=== PATIENT | male | born 1990 | race Asian ===

== ENCOUNTER 2018-09-29 07:55 | Emergency (ER) | payer OTHER ==
[2018-09-29 08:14] VITALS: BP 117/81
--- NOTE | 2018-09-29 08:23 | UC ---
Skin Complaint HPI - History of Current Complaint Chief Complaint: UCDentalProblem Time Seen by Provider: 09/29/18 08:22 Stated Complaint: JAW INFECTION Pain Intensity: 3 - Allergy/Home Medications Allergies/Adverse Reactions: Allergies Allergy/AdvReac Type Severity Reaction Status Date / Time No Known Allergies Allergy Verified 09/29/18 08:14 Home Medications: Home Medications Levofloxacin TAB* [Levaquin TAB*] 750 mg PO DAILY 09/29/18 [History Confirmed ] Mupirocin 2% OINT* [Bactroban 2 % Oint*] 1 applic TOPICAL BID 09/29/18 [History Confirmed 09/29/18] PMH/Surg Hx/FS Hx/Imm Hx - Surgical History Surgical History: None - Social History Alcohol Use: None Substance Use Type: None Smoking Status (MU): Never Smoked Tobacco Physical Exam Vital Signs: Initial Vital Signs Temp 97.6 F 09/29/18 08:08 Pulse 68 09/29/18 08:08 Resp 18 09/29/18 08:08 BP 117/81 09/29/18 08:08 Pulse Ox 100 09/29/18 08:08 Discharge - Discharge Plan Referrals: No Primary Care Phys,NOPCP [Primary Care Provider] -
--- NOTE | 2018-09-29 08:46 | UC ---
Skin Complaint HPI - HPI Summary HPI Summary: 27 yo male presents with rash to his face. He tells me that about 1 week ago he had a small welt on his left lower cheek that he scratched. The next day had some redness and drainage from the site. He went to [facility] and was put on an antibiotic - unsure the name. After 2 days, he rash continued to spread to his chin and right cheek. He went back to [facility] and was placed on a cream and a different antibiotic - unsure the name. His rash continued to spread and started to appear on his forehead and right neck. He went back to [facility] yesterday and was put on Levaquin. He contacted them this morning because he is having trouble opening his mouth due to pain and swelling - he was advised to go to the hospital for IV antibiotics. He states he is here for IV antibiotics. Denies fever, chills, hx of MRSA. - History of Current Complaint Chief Complaint: UCDentalProblem Time Seen by Provider: 09/29/18 08:22 Stated Complaint: JAW INFECTION Hx Obtained From: Patient Onset/Duration: Gradual Onset Onset Severity: Mild Current Severity: Mild Pain Intensity: 3 Pain Scale Used: 0-10 Numeric - Allergy/Home Medications Allergies/Adverse Reactions: Allergies Allergy/AdvReac Type Severity Reaction Status Date / Time No Known Allergies Allergy Verified 09/29/18 08:14 Home Medications: Home Medications Levofloxacin TAB* [Levaquin TAB*] 750 mg PO DAILY 09/29/18 [History Confirmed ] Mupirocin 2% OINT* [Bactroban 2 % Oint*] 1 applic TOPICAL BID 09/29/18 [History Confirmed 09/29/18] PMH/Surg Hx/FS Hx/Imm Hx - Additional Past Medical History Additional PMH: None - Surgical History Surgical History: None - Family History Known Family History: Positive: None - Social History Occupation: Employed Full-time Lives: With Family Alcohol Use: None Substance Use Type: None Smoking Status (MU): Never Smoked Tobacco Review of Systems All Other Systems Reviewed And Are Negative: Yes Constitutional: Positive: Negative Skin: Positive: Rash Eyes: Positive: Negative ENT: Positive: Negative Respiratory: Positive: Negative Cardiovascular: Positive: Negative Gastrointestinal: Positive: Negative Neurovascular: Positive: Negative Neurological: Positive: Negative Psychological: Positive: Negative Physical Exam - Summary Physical Exam Summary: GENERAL: NAD. WDWN. No pain distress. SKIN: FACE: Chin, right lower cheek, and forehead with mild edema and extensive yellow crusted erythema and drainage. TTP. Right neck with expanding erythema. No abscess appreciated. No sloughing of lips or oral mucosa. No periorbital rash or edema. NECK: Supple. Nontender. No lymphadenopathy. CHEST: No accessory muscle use. Breathing comfortably and in no distress. CV: Pulses intact. Cap refill <2seconds NEURO: Alert. PSYCH: Age appropriate behavior. Triage Information Reviewed: Yes Vital Signs: Initial Vital Signs Temp 97.6 F 09/29/18 08:08 Pulse 68 09/29/18 08:08 Resp 18 09/29/18 08:08 BP 117/81 09/29/18 08:08 Pulse Ox 100 09/29/18 08:08 Vital Signs Reviewed: Yes Course/Dx - Course Course Of Treatment: Appears to be a moderate to severe case of impetigo. Given his refractory treatment to 3 different po anbx outpatient and bactroban cream - he was advised to go to the ED for IV antibiotics, by [facility]. He is here today because he thought this was the ER. I discussed with him the location of the ER and agree with [facility] that he likely needs IV antibiotics or a derm consult. He was provided with directions to the hospital - Diagnoses Provider Diagnosis: Impetigo Discharge - Sign-Out/Discharge Documenting (check all that apply): Patient Departure All imaging exams completed and their final reports reviewed: No Studies - Discharge Plan Condition: Stable Disposition: HOME-RECOMMEND TO ED Referrals: No Primary Care Phys,NOPCP [Primary Care Provider] - Additional Instructions: Please go to the ER for further evaluation of your facial rash - Billing Disposition and Condition Condition: STABLE Disposition: Home-Recommend to ED
== END 2018-09-29 08:50 | disposition home health service (06) ==
LOC: UCEAST 07:55
DX: L01.00 Impetigo, unspecified (principal)
CPT/HCPCS: 99202; G0463

== ENCOUNTER 2018-09-29 09:17 | Emergency (ER) | payer OTHER ==
--- NOTE | 2018-09-29 10:13 | ED ---
Skin Complaint - HPI Summary HPI Summary: The patient is a 27 y/o M presenting to [facility] with a chief complaint of facial skin rash starting one week ago. The rash is located on his forehead and cheeks and is accompanied by erythema and swelling, primarily in the right side of the face. He has visited [facility] three times over the course of the week, and he has been prescribed three different abx, with the current prescription being for Levaquin and Bactroban to no relief. He has not experienced this before. He denies fever and chills. The pain is currently rated 3/10 in severity. He has not seen a stock feeder yet. No hx. No surgical hx. No FHx. Nonsmoker, no EtOH, no substance use. - History of Current Complaint Chief Complaint: EDRashSkinAbscess Time Seen by Provider: 09/29/18 10:05 Stated Complaint: FACIAL RASH PER PT-SENT FROM URGENT CARE Hx Obtained From: Patient Onset/Duration: Started Days Ago - one week, Still Present Skin Exposure Onset/Duration: Days Ago Timing: Constant, Lasting Days Onset Severity: Mild Current Severity: Moderate Pain Intensity: 3 Pain Scale Used: 0-10 Numeric Skin Location: Face - forehead, left and right cheeks Character: Swelling, Redness Aggravating Symptom(s): Nothing Alleviating Symptom(s): Nothing - abx prescribed by [facility] have not changed the rash Associated Signs & Symptoms: Rash - facial - Allergy/Home Medications Allergies/Adverse Reactions: Allergies Allergy/AdvReac Type Severity Reaction Status Date / Time No Known Allergies Allergy Verified 09/29/18 09:24 PMH/Surg Hx/FS Hx/Imm Hx Endocrine/Hematology History: Denies: Hx Diabetes Respiratory History: Denies: Hx Asthma Sensory History: Reports: Hx Contacts or Glasses Denies: Hx Legally Blind Opthamlomology History: Reports: Hx Contacts or Glasses Denies: Hx Legally Blind EENT History: Denies: Hx Deafness - Surgical History Surgical History: None Surgery Procedure, Year, and Place: none Infectious Disease History: No Infectious Disease History: Denies: Traveled Outside the [place] in Last 30 Days - Family History Known Family History: Negative: Cardiac Disease, Hypertension, Diabetes - Social History Alcohol Use: None Hx Substance Use: No Substance Use Type: Reports: None Hx Tobacco Use: No Smoking Status (MU): Never Smoked Tobacco Do You Chew or Dip Tobacco: No Have You Chewed or Dipped Tobacco in the LAST YEAR: No Have You Smoked in the Last Year: No Review of Systems Negative: Fever, Chills Positive: Rash - on the forehead and cheeks, Other - swelling at site of rash mostly on the right side with erythema All Other Systems Reviewed And Are Negative: Yes Physical Exam - Summary Physical Exam Summary: VITAL SIGNS: Reviewed. GENERAL: Patient is a well-developed and nourished male who is lying comfortable in the stretcher. Patient is not in any acute respiratory distress. HEAD AND FACE: No signs of trauma. No ecchymosis, hematomas or skull depressions. No sinus tenderness. EYES: PERRLA, EOMI x 2, No injected conjunctiva, no nystagmus. EARS: Hearing grossly intact. Ear canals and tympanic membranes are within normal limits. MOUTH: Oropharynx within normal limits. NECK: Supple, trachea is midline, no adenopathy, no JVD, no carotid bruit, no c- spine tenderness, neck with full ROM. CHEST: Symmetric, no tenderness at palpation LUNGS: Clear to auscultation bilaterally. No wheezing or crackles. CVS: Regular rate and rhythm, S1 and S2 present, no murmurs or gallops appreciated. ABDOMEN: Soft, non-tender. No signs of distention. No rebound no guarding, and no masses palpated. Bowel sounds are normal. EXTREMITIES: FROM in all major joints, no edema, no cyanosis or clubbing. NEURO: Alert and oriented x 3. No acute neurological deficits. Speech is normal and follows commands. SKIN: Dry and warm. Erythema in the lower jaw under the lower lip extending into the right and left cheeks as well as the forehead with vesicular lesions and papules and a few pustules with crusty discharge. Triage Information Reviewed: Yes Vital Signs On Initial Exam: Initial Vitals Temp Pulse Resp BP Pulse Ox 97.0 F 73 16 124/83 97 09/29/18 09:20 09/29/18 09:20 09/29/18 09:20 09/29/18 09:20 09/29/18 09:20 Vital Signs Reviewed: Yes Diagnostics - Vital Signs Vital Signs Temp Pulse Resp BP Pulse Ox 09/29/18 09:20 97.0 F 73 16 124/83 97 - Laboratory Result Diagrams: 09/29/18 10:21 09/29/18 10:21 Lab Statement: Any lab studies that have been ordered have been reviewed, and results considered in the medical decision making process. Re-Evaluation - Re-Evaluation First Eval Re-Evaluation Time: 12:00 Comment: I discussed discharge home with the patient and the need for follow up with dermatology. Course/Dx - Course Assessment/Plan: The patient is a 27 y/o M presenting to [facility] with a chief complaint of facial skin rash starting one week ago. The rash is located on his forehead and cheeks and is accompanied by erythema and swelling, primarily in the right side of the face. He has visited [facility] three times over the course of the week, and he has been prescribed three different abx, with the current prescription being for Levaquin and Bactroban to no relief. He has not experienced this before. He denies fever and chills. The pain is currently rated 3/10 in severity. He has not seen a stock feeder yet. No hx. No surgical hx. No FHx. Nonsmoker, no EtOH, no substance use. Blood tests without any significant abnormality. I believe that the patient has a form of impetigo with possible secondary skin infection. At this point, I dont believe Levaquin will help the patient especially if this is MRSA. Therefore, I would change the antibiotic for this patient to Bactrim twice a day and continue with Mupirocin. I will also send the patient to see a stock feeder on Monday, October 01 at [facility]. He was given instructions that if he develops any fever, weakness, decreased appetite, or lethargy, he should immediately return to the emergency department for further workup and management. He understands and agrees. - Diagnoses Provider Diagnoses: Impetigo - Physician Notifications Discussed Care Of Patient With: [facility] Time Discussed With Above Provider: 11:30 Instructed by Provider To: Other - [facility] was called to try to speak with a stock feeder concerning the patient. However, a provider was not available, and they said that the physician will call the patient to make an appointment. Discharge - Sign-Out/Discharge Documenting (check all that apply): Patient Departure - Patient will be discharged home. Patient Received Moderate/Deep Sedation with Procedure: No - Discharge Plan Condition: Stable Disposition: HOME Prescriptions: Sulfamethox/Trimethoprim DS* [Bactrim DS 800/160 TAB*] 1 tab PO BID #20 tab Patient Education Materials: Impetigo (DC) Referrals: Presley Rizvi MD [Medical Doctor] - 2 Days Additional Instructions: Please take medication as prescribed. Follow up with [facility] on Monday, October 01, 2018. RETURN TO THE EMERGENCY DEPARTMENT FOR ANY NEW OR WORSENING SYMPTOMS. - Billing Disposition and Condition Condition: STABLE Disposition: Home - Attestation Statements Document Initiated by Domingo: Yes Documenting Scribe: Lily Hopson Provider For Whom Domingo is Documenting (Include Credential): Dr. Mike Flower MD Scribe Attestation: Lily Kolb scribed for Dr. Mike Flower MD on 09/29/18 at 1214. Scribe Documentation Reviewed: Yes Provider Attestation: The documentation as recorded by the Lily hughes accurately reflects the service I personally performed and the decisions made by me, Dr. Mike Flower MD Status of Scribe Document: Ready
[2018-09-29 11:01] LABS: ABS Eosinophils 0.9 10^3/ul (0-0.6); ABS Lymphocytes 1.8 10^3/ul (1.0-4.8); ABS Monocytes 0.4 10^3/ul (0-0.8); ABS Neutrophils 4.8 10^3/ul (1.5-7.7); Eosinophil % 11.1 %; Hematocrit 44 % (42-52); Hemoglobin 15.5 g/dL (14.0-18.0); Lymphocyte % 22.4 %; Mean Corpuscular HGB Conc 36 g/dL (31-36); Mean Corpuscular Hemoglobin 32 pg (27-31); Mean Corpuscular Volume 89 fL (80-94); Mean Platelet Volume 8.7 fL (7.4-10.4); Platelet Count 237 10^3/uL (150-450); Red Blood Count 4.92 10^6 /uL (4.18-5.48); Red Cell Distribution Width 13 % (10-15); White Blood Count 7.8 10^3/uL (3.5-10.8)
[2018-09-29 11:05] LABS: Urine Appearance Clear; Urine Bilirubin Negative (Negative); Urine Blood Negative (Negative); Urine Color Straw; Urine Glucose Negative (Negative); Urine Ketones Negative (Negative); Urine Nitrite Negative (Negative); Urine Protein Negative (Negative); Urine Specific Gravity 1.008 (1.010-1.030); Urine Urobilinogen Negative (Negative)
[2018-09-29 11:06] LABS: Albumin 4.7 g/dL (3.2-5.2); Albumin/Globulin Ratio 1.7 (1-3); BUN/Creatinine Ratio 11.6 (8-20); C Reactive Protein 2.9 mg/L (<8.01); Calcium 9.7 mg/dL (8.6-10.3); EGFR African American 130.1 (>60); EGFR Non-African American 107.5 (>60); Globulin 2.7 g/dL (2-4); Potassium 3.9 mmol/L (3.5-5.0); Total Bilirubin 0.9 mg/dL (0.2-1.0); Total Protein 7.4 g/dL (6.4-8.9)
[2018-09-29] MEDS ORDERED: Sulfamethox/Trimethoprim DS 800/160* TAB PO ONE (11:08)
[2018-09-29 12:20] VITALS: BP 120/84
== END 2018-09-29 12:19 | disposition home or self-care (01) ==
LOC: ED 09:17
DX: L01.00 Impetigo, unspecified (principal)
CPT/HCPCS: 36415; 80053; 81003; 83605; 85025; 86140; 87070; 87077; 87205; 99282; A9270-GY

== ENCOUNTER 2018-10-04 09:53 | Emergency (ER) | payer OTHER ==
--- NOTE | 2018-10-04 12:20 | ED ---
Skin Complaint - HPI Summary HPI Summary: This patient is a 27 year old M presenting to [facility] with a chief complaint of a rash on his face that has not improved since last visit 1 week ago. The pt was discharged with ABX and a follow up with a special police officer who agreed with the plan of care. He saw the special police officer on 10/01/18 and he is still taking the ABX treatment. The pt states that the rash was improving until yesterday when it started to progressively get worse. The pt stated that an area on his chin has started to become swollen and produces puruitic discharge. He reports the pain is a 4/10 in severity. He denies any fever, N/V/D, CP, headaches, sore throat, SOB, coughs, and lightheadedness. His symptoms are aggravated and alleviated by nothing. He tried to make an appointment with the special police officer today but was unable to. The rash was Dx as Impetigo during his last ED visit. - History of Current Complaint Chief Complaint: EDRashSkinAbscess Time Seen by Provider: 10/04/18 12:04 Stated Complaint: JAW SWOLLEN PER PT Hx Obtained From: Patient Onset/Duration: Started Days Ago - 1, Still Present, Worse Since - 10/03/18 Skin Exposure Onset/Duration: Weeks Ago - seen last week for same issue Timing: Constant Onset Severity: Moderate Current Severity: Moderate Pain Intensity: 4 Pain Scale Used: 0-10 Numeric Skin Location: Generalized - Jaw Character: Swelling, Pruritus, Pain Aggravating Symptom(s): Nothing Alleviating Symptom(s): Nothing Associated Signs & Symptoms: Negative - fever, N/V/D, CP, headaches, sore throat , SOB, coughs, and lightheadedness, Rash - jaw Related History: Other: - rash was Dx as Impetigo last week, ABX treatment per special police officer - Allergy/Home Medications Allergies/Adverse Reactions: Allergies Allergy/AdvReac Type Severity Reaction Status Date / Time No Known Allergies Allergy Verified 09/29/18 09:24 PMH/Surg Hx/FS Hx/Imm Hx Previously Healthy: No Endocrine/Hematology History: Denies: Hx Diabetes Respiratory History: Denies: Hx Asthma Sensory History: Reports: Hx Contacts or Glasses Denies: Hx Legally Blind, Hx Deafness Opthamlomology History: Reports: Hx Contacts or Glasses Denies: Hx Legally Blind - Surgical History Surgery Procedure, Year, and Place: none Infectious Disease History: No Infectious Disease History: Denies: Traveled Outside the [place] in Last 30 Days - Family History Known Family History: Positive: None Negative: Cardiac Disease, Hypertension, Diabetes - Social History Alcohol Use: None Hx Substance Use: No Substance Use Type: Reports: None Hx Tobacco Use: No Smoking Status (MU): Never Smoked Tobacco Have You Smoked in the Last Year: No Review of Systems Negative: Fever Negative: Sore Throat Negative: Chest Pain Negative: Shortness Of Breath, Cough Negative: Abdominal Pain, Vomiting, Diarrhea, Nausea Positive: Rash - Jaw, Dx as Impetigo last week, pruitic discharge, painful Neurological: Negative - lightheadedness Negative: Headache All Other Systems Reviewed And Are Negative: Yes Physical Exam - Summary Physical Exam Summary: Appearance: Well-appearing, Well-nourished, lying in bed comfortably Skin: Warm, dry, Rash is swollen along the mental region and into the cheeks and produces pruritic discharge. Crusting about the chin, no sign of abscess. Eyes: sclera anicteric, no conjunctival pallor ENT: mucous membranes moist, pharynx appears normal Neck: Supple, nontender Respiratory: Clear to auscultation, no signs of respiratory distress Cardiovascular: Normal S1, S2. No murmurs. Normal distal pulses in tibial and radial bilaterally. Abdomen: Soft, nontender, normal active bowel sounds present Musculoskeletal: Normal, Strength/ROM Intact Neurological: A&Ox3, awake and alert, mentation is normal, speech is fluent and appropriate Psychiatric: affect is normal, does not appear anxious or depressed Triage Information Reviewed: Yes Vital Signs On Initial Exam: Initial Vitals Temp Pulse Resp BP Pulse Ox 99.2 F 74 16 110/66 78 10/04/18 10:04 10/04/18 10:04 10/04/18 10:04 10/04/18 10:04 10/04/18 10:04 Vital Signs Reviewed: Yes Diagnostics - Vital Signs Vital Signs Temp Pulse Resp BP Pulse Ox 10/04/18 11:40 99 F 68 16 116/78 98 10/04/18 10:04 99.2 F 74 16 110/66 78 - Laboratory Lab Statement: Any lab studies that have been ordered have been reviewed, and results considered in the medical decision making process. Course/Dx - Course Course Of Treatment: This patient is a 27 year old M presenting to [facility] with a chief complaint of a rash on his face that has not improved since last visit 1 week ago. The pt was discharged with ABX and a follow up with a special police officer who agreed with the plan of care. Upon his PE the pt had a rash that is swollen along the mental region and into the cheeks and produces pruritic discharge. Crusting about the chin, no sign of abscess. Dr. Vallejo, Dermatology, was called at 1222 to discuss the pt's worsening symptoms. She recommended that the pt gets switched from bactrim to doxycycline and he will be seen in the office tomorrow at the scheduled appointment time. The pt will be discharged with Impetigo and have an antibiotic change from Bactrim to Doxycycline. He will follow up with Dr. Vallejo tomorrow at his scheduled appointment. - Diagnoses Provider Diagnoses: Impetigo - Physician Notifications Discussed Care Of Patient With: Leelee Vallejo Time Discussed With Above Provider: 12:22 Instructed by Provider To: Other - Dr. Vallejo, Dermatology, was called at 1222 to discuss the pt's worsening symptoms. She recommended that the pt gets switched from bactrim to doxycycline and he will be seen in the office tomorrow at the scheduled appointment time. Discharge - Sign-Out/Discharge Documenting (check all that apply): Patient Departure - discharge Patient Received Moderate/Deep Sedation with Procedure: No - Discharge Plan Condition: Stable Disposition: HOME Prescriptions: DOXYcycline CAP(*) [DOXYcycline 100MG CAP(*)] 100 mg PO BID #20 cap Referrals: Leelee Vallejo MD [Medical Doctor] - Additional Instructions: I spoke with Dr. Vallejo, and we decided to change your antibiotic from the current bactrim to doxycycline. She has an appt scheduled for you tomorrow at 10 :30 and will discuss other options then. - Billing Disposition and Condition Condition: STABLE Disposition: Home - Attestation Statements Document Initiated by Scribe: Yes Documenting Scribe: Daniel Grant Provider For Whom Scribe is Documenting (Include Credential): Jason Rey MD Scribe Attestation: Daniel Kolb, scribed for Jason Rey MD on 10/04/18 at 1311. Scribe Documentation Reviewed: Yes Provider Attestation: The documentation as recorded by the scribe, Daniel Grant accurately reflects the service I personally performed and the decisions made by me, Jason Rey MD Status of Domingo Document: Viewed
[2018-10-04 12:31] VITALS: BP 0/0
== END 2018-10-04 12:29 | disposition home or self-care (01) ==
LOC: ED 09:53
DX: R21 Rash and other nonspecific skin eruption (principal); L01.00 Impetigo, unspecified
CPT/HCPCS: 99282